=== PATIENT | male | born 1990 | race Caucasian/White ===

== ENCOUNTER 2020-11-23 15:39 | Emergency (ER) | payer MEDICAID ==
[~2020-11-23] VITALS: Ht 180.3 cm; Wt 92.0 kg
[~2020-11-23 15:39] MED LIST: NO; ULTRAM50 M1 PO
[2020-11-23 16:50] VITALS: BP 120/68
== END 2020-11-23 16:50 | disposition home or self-care (01) | DRG 179 ==
LOC: ED 15:39
DX: U07.1 COVID-19 (principal); J45.909 Unspecified asthma, uncomplicated